=== PATIENT | female | born 1980 | race Caucasian/White ===

== ENCOUNTER 2016-07-24 05:35 | Day surgery (SDC) | payer OTHER ==
[~2016-07-24] VITALS: Ht 165.1 cm; Wt 143.4 kg
[2016-07-24] VITALS (10 sets, daily range): BP systolic 105–140; BP diastolic 65–92; PULSE 70–91; RESP 9–28; O2SAT 97–99
[~2016-07-24 05:35] MED LIST: CHOL5000 PO; DICL50TA7 PO; FLUO20CA25 PO; HYDR-3740 PO; MELA1TAB16 PO
[2016-07-24] MEDS ORDERED: fentaNYL-PF 50 mCg/mL 2 mL Inj ONE (05:36)
[2016-07-24] MEDS ORDERED: Ketamine 10 mg/mL 20 mL Inj ONE (05:36)
[2016-07-24] MEDS: Lactated Ringer's 1,000 ML IV SCH ×2 (08:05→10:18)
[2016-07-24] MEDS ORDERED: Lactated Ringer's 500 ML IV PRN (09:23)
[2016-07-24] MEDS ORDERED: Lactated Ringer's 1,000 ML IV SCH (09:23)
--- NOTE | 2016-07-24 09:23 | PCM.HPANE ---
Patient Data Date of Service: Jul 24, 2016 Surgeon Admitting Provider: Attending Provider:Andrews Agrawal MD Primary Care Physician:Shay Kidd MD Other Provider:Jolene Oneill Anesthesia Reason for Visit Abnormal Uterine Bleeding Ht/WT & BMI Height (Feet): 5 Height (Inches): 5 Weight (Kilograms): 143.4 Body Mass Index 52.00 Allergies Coded Allergies: aloe (Verified Allergy, Unknown, hives, 07/22/16) Uncoded Allergies: BLEACH (Allergy, Unknown, hives, 07/22/16) Past Anesthesia History Anesthesia History: Denies:: Abnormal Airway, Anesthesia Reactions, Difficult Intubation, Fam Anesthesia Reaction Diabetes History Hx Diabetes?: No MRSA MRSA: No Medications Hypertension Medication: No Home Meds Incl Beta Chano: No Reported Medications Cholecalciferol (Vitamin D3) (Vitamin D3)5,000 Unit Capsule5,000 Unit PO DAILY 07/22/16 Melatonin/Pyridoxine (Melatonin 5 mg Tablet)1 Each Tablet1 Each PO HS PRN Insomnia 07/22/16 Hydrocodone-Acetaminophen 10-325 mg 1 Each Tablet1 Tablet PO Q4H PRN For Pain Ref 0 07/22/16 Fluoxetine 20 Mg [id number] Mg PO DAILY Ref 0 07/22/16 Diclofenac ER 50 Mg [id number] Mg PO BID 07/22/16 History History of ENT Problems?: No HEENT History: Denies:: Abnormal Airway Cataracts Difficult Intubation Dysphagia Glaucoma Hearing Problem Sinus Problem TMJ Hx of Heart Problems?: No Cardiovascular History: Denies:: AICD Abdominal Aortic Aneurism Atrial Fibrillation Cardiac Surgery Chest Pain Edema Heart Murmur Hypertension Irregular Heartbeat Pacemaker Peripheral Vascular Rheumatic Fever Thrombophlebitis Valvular Heart Disease Hx of Respiratory Problem?: No Respiratory History: Denies:: Asthma COPD Emphysema Oxygen Administration Pneumonia Tuberculosis Use of C-PAP Machine (has had negative sleep study) Use of Inhalers / NEBS Hx Neurologic Problems?: No Neurological History: Denies:: Alzheimer's Disease CVA Dementia Dizziness Headaches Multiple Sclerosis Parkinson's Disease Seizures TIA Hx of GI Problems?: No Gastrointestinal History: Denies:: Cirrhosis Diverticulitis Gall Bladder Disease Gastroesphageal Reflux Gastrointestinal Bleeding Heartburn Hepatitis Hiatal Hernia Liver Disease Rectal Bleeding Hx of Problems?: No Genitourinary History: Denies:: Kidney Stones Urinary Tract Infection Female Hx: Denies:: Currently Problems with Breasts? Skin History: Positive for:: History Skin Disorders? (right foot incision- scabbed ) Denies:: Pressure Ulcers Hx Musculoskeletal Problems?: Yes Musculoskeletal History: Positive for:: Musculoskeletal Trauma (right foot surgery 3 weeks ago- wearing boot) Osteoarthritis Denies:: Fibromyalgia (pt believes so, not diagnosed ) Joint Replacement Myasthenia Gravis Rheumatoid Arthritis Other History/Comment Likely DJD or other L-sp derangement without radicular Sx. Hx of Psycho/Social Problems?: Yes Psycho Social History: Positive for:: Hx Depression Hx Surgeries?: Yes (exc bone spur, tubal ligation) Hx Any Other Health Problems?: Yes Other History: Denies:: Cancer Thyroid Disease ("flares up" no medications) History Blood Transfusions: Positive for:: Accept Blood Products? Denies:: Blood Transfusions Hx Diabetes: No Hx Alcohol Use: NoHx Substance Use: Yes (topical marijuana use (last used two months ago))Have You Smoked inLast 12 mo: No Stop/Bang Treated for Sleep Apnea?: No Do You Have a CPAP Machine?: No S-Snoring: Do You Snore Loudly: No T-Tired: feel tired, fatigued: Yes O-Obsered: Observed not breath: No P-Blood Pressure: treated: No B- Body Mass Index > 35 kg/m2: Yes A- Age over 50: No N- Neck Large Circumference: Yes G- Gender Male: No BRENDA Total Score: 3 BRENDA Risk Assessment: Low Risk, <3 Yes Risk Assessment Category Category 1A: Patient has history of documented sleep apnea, and HAS NOT received any narcotic, sedative or anesthesia administration during this stay. Category 1B: Patient has history of documented sleep apnea, and HAS received any narcotic , sedative or anesthesia administration during this stay Category 2: Patient has SUSPECTED Obstructive Sleep Apnea, and HAS received any narcotic , sedative or anesthesia administration during this stay. Category 3: Patient has SUSPECTED Obstructive Sleep Apnea and HAS NOT received narcotic, sedative or anesthesia administration during this stay. Category 4: Outpatient in Procedural Areas with known sleep apnea or who screen positive for High Risk via the STOP/BANG questionnaire. Exam Exam Vital Signs Vital Signs Date Time Temp Pulse Resp B/P Pulse Ox O2 Delivery O2 Flow Rate FiO2 07/24/16 07:18 36.3 91 14 105/90 98 Room Air General Appearance: Alert, Oriented X3, Cooperative, No Acute Distress HEENT/AIRWAY: MP 3 (large neck and tongue, small mouth opening) Lungs: Clear to Auscultation, Normal Air Movement Heart: Exam Unremarkable, Normal S1, Normal S2 Meds/Labs/Diagnostics Admission Meds Current Medications Lactated Ringer's (Lr) 1,000 ml @ 120 mls/hr Q8H20M IV Last administered on t 08:05; Start 07/24/16 at 05:00; Stop 07/24/16 at 13:19 Plan Impression Patient chart reviewed, patient interviewed and anesthestic plan with risks, benefits, and alternatives discussed, and informed consent obtained. NPO Status: 07/23 ASA Physical Status: ASA2 Mod Systemic Disease Anesthetic Plan: GA Bene/Risks/Altern/Consents: Yes HP Complete Prior to Induction: Yes Other Morbid obesity Sven Castro DO Jul 24, 2016 09:22
[2016-07-24] MEDS ORDERED: Phenylephrine 10,000 mCg/mL Inj IVPUSH PRN (09:25)
[2016-07-24] MEDS ORDERED: Ondansetron 2 mg/mL 2 mL Inj IVPUSH PRN ×2 (09:25→11:20)
[2016-07-24] MEDS ORDERED: MetoCLOpramide 5 mg/mL 2 mL Inj IVPUSH PRN ×2 (09:25→11:20)
[2016-07-24] MEDS ORDERED: EPHEDrine Sulfate 50 mg/mL Inj IVPUSH PRN (09:25)
[2016-07-24] MEDS ORDERED: Labetalol 5 mg/mL 4 mL Inj IV PRN (09:25)
[2016-07-24] MEDS ORDERED: Dexamethasone 4 mg/mL Inj IVPUSH PRN (09:25)
[2016-07-24] MEDS ORDERED: Atropine 0.4 mg/mL Inj IVPUSH PRN (09:25)
[2016-07-24] MEDS ORDERED: diphenhydrAMINE 25 mg Capsule PO PRN (11:20)
[2016-07-24] MEDS ORDERED: oxyCODONE-Acetamin 5-325 mg Tablet PO PRN (11:20)
--- NOTE | 2016-07-24 11:21 | PCM.DIMED ---
Discharge Instructions Date of Service Jul 24, 2016 Dates of Hospitalization Diet No restrictions Activity No restrictions Call your provider Fever or Chills, Shortness of breath, Bleeding, Chest pain, Vomitting, Excessive diarrhea, Weakness (unilateral) Patient Instructions Follow-up with PCP in: 2 weeks Andrews Agrawal MD Jul 24, 2016 11:21
[2016-07-24] MEDS: fentaNYL-PF 50 mCg/mL 2 mL Inj IVPUSH PRN ×2 (11:34→11:43)
[2016-07-24] MEDS: HYDROmorphone 1 mg/mL Inj IVPUSH PRN ×3 (11:34→11:50)
--- NOTE | 2016-07-24 12:11 | PCM.ANEP1 ---
Post Anesthesia Phase 1 PACU Phase 1 Assessment Date of Service: Jul 24, 2016 Vital Signs Vital Signs Date Time Temp Pulse Resp B/P Pulse Ox O2 Delivery O2 Flow Rate FiO2 07/24/16 12:00 86 14 123/82 97 Room Air 07/24/16 11:45 85 17 134/85 98 Room Air 07/24/16 11:35 36.3 74 9 132/92 97 Room Air 07/24/16 11:30 73 17 138/72 98 Room Air 07/24/16 11:25 82 28 140/89 99 Simple Mask 8 07/24/16 11:20 85 18 99 Simple Mask 8 07/24/16 11:15 78 16 137/65 98 Simple Mask 8 07/24/16 07:18 36.3 91 14 105/90 98 Room Air Anesthetic Administered: GA Level of Alertness: Awake, talking WAY's with Equal Strength: Yes Pain: No Nausea or Vomiting: No Airway Device: LMA Oxygen Delivery: Simple Mask (6l) Lungs: Clear to Auscultation, Normal Air Movement Dermatome Level: Full Sensation Sven Castro DO Jul 24, 2016 12:11
--- NOTE | 2016-07-24 12:14 | OP ---
[address] [address] OPERATIVE REPORT PATIENT: MICKY POTTS : 1980 MR#: [id number] ADMIT: 07/24/2016 JOB ID: [id number] DATE OF SURGERY: 07/24/2016 PROCEDURE: Removal of Mirena intrauterine device. Hysteroscopy. Endometrial biopsy. NovaSure endometrial ablation. PREOPERATIVE DIAGNOSIS(ES): Abnormal uterine bleeding. POSTOPERATIVE DIAGNOSIS(ES): Abnormal uterine bleeding. SURGEON: Andrews Agrawal MD ANESTHESIA: General. ESTIMATED BLOOD LOSS: 20 mL. ESTIMATED URINE OUTPUT: 100 mL. FLUIDS: 800 mL of lactated Ringer. Fluid deficit using MyoSure instrument for hysteroscopy and biopsy was 1075 mL of normal saline. FINDINGS: Normal appearance of the cervix, vagina, and perineum. The uterus was sounded to 8.5 cm from the cervical os. Hypertrophied endometrium. PROCEDURE: The patient was brought to the operating room, where she underwent general anesthesia without difficulty. She was placed in a deep dorsal lithotomy position using Rashid stirrups. She was prepped and draped in the usual surgical fashion. Time-out was performed verifying correct patient and correct procedure. A weighted speculum was placed into the vagina. The cervix was identified and grasped with a tenaculum. Weighted speculum was replaced with Voss retractor. With Hegar dilators the cervix was dilated to 7 mm. The Mirena IUD was removed. Using the MyoSure hysteroscope, hysteroscopy was performed, verifying the findings mentioned above. With the MyoSure instrument, endometrial sampling was done. Areas of hypertrophied endometrium, mostly from 3-9 o'clock and at 6 o'clock, were removed and sent to Pathology. Total fluid deficit was 1075 mL of normal saline. Endometrial ablation was done using the NovaSure instrument. The assessment of cavity showed 5 cm for the length and 2.7 cm for the width. After the cavity assessment was completed, the ablation cycle was started. It was successfully completed in 1 minute and 49 seconds. The NovaSure instrument was removed. Hysteroscopy was performed verifying ablation of the endometrial cavity. A series of images was obtained during the procedure. All the instruments were removed. The patient was repositioned back into the supine position. She tolerated the procedure well and was transferred to the recovery room in stable condition.
--- NOTE | 2016-07-24 12:46 | PCM.ANEP2 ---
Post Anesthesia Evaluation ASA/CMS Post Anesthesia Date of Service: Jul 24, 2016 VS in Patient's Normal Range?: Yes Resp Stable; Airway Patent?: Yes CV Function & Hydration Stable: Yes Mental Status Recovered?: Yes Pain control Satisfactory?: Yes N/V Control Satisfactory?: Yes Sven Castro DO Jul 24, 2016 12:46
--- NOTE | 2016-07-28 10:55 | PATH ---
SURGICAL PATHOLOGY Attending Physician:Andrews Agrawal MD CASE STATUS: Signed Out PATIENT NAME: MICKY POTTS PID: [id number] : 1980 DATE COLLECTED:07/24/2016 15:06 SPECIMEN: Endometrium, Biopsy CLINICAL HISTORY: Abnormal Uterine Bleeding 1). ENDOMETRIUM FINAL DIAGNOSIS: 1.ENDOMETRIUM BIOPSY: FRAGMENTS OF MYOMETRIUM WITH MINIMALLY PROLIFERATIVE ENDOMETRIUM SHOWING CHANGES OF GLANDULAR AND STROMAL BREAKDOWN. FOCAL STROMAL CHANGES SUGGESTIVE OF EXOGENOUS HORMONE EFFECT. MULTIFOCAL AREAS OF ADENOMYOSIS. NEGATIVE FOR ATYPIA AND MALIGNANCY. ICD10 CODE N93.8 GROSS DESCRIPTION: The specimen is received in one formalin filled container labeled with the patient's name, sublabeled "endometrium" and consists of multiple portions of light agustin-garcia tissue and mucoid material which aggregate to 2.0 x 1.8 x 0.5 CM. The specimen is filtered and entirely submitted in one cassette. 07/24/2016 [facility] MICRO DESCRIPTION: See diagnosis. ICD-9 CODES: CPT CODES: 1: 47538 Electronically Signed Out Jose M Fatima MD [facility] [address], [place] [address] Technical component performed at [facility], [facility] [address], [place], [address]
== END 2016-07-24 23:59 | disposition home or self-care (01) ==
LOC: SAS 05:35
PROVIDERS: ATTEND Legal Medicine
PROC: 0UP Female Reproductive System, Removal (ICD-10-PCS; 2016-07-24)
PROC: 0UB98ZX Excision of Uterus, Via Natural or Artificial Opening Endoscopic, Diagnostic (ICD-10-PCS; 2016-07-24)
PROC: 0U5B8ZZ Destruction of Endometrium, Via Natural or Artificial Opening Endoscopic (ICD-10-PCS; principal; 2016-07-24 09:15)
DX: N93.9 Abnormal uterine and vaginal bleeding, unspecified (principal); Z30.432 Encounter for removal of intrauterine contraceptive device; E66.01 Morbid (severe) obesity due to excess calories; Z68.42 Body mass index [BMI] 45.0-49.9, adult
CPT/HCPCS: 58301; 58563; 88305; J1170; J2175; J2250; J3010; J7120